=== PATIENT | female | born 1965 | race Caucasian/White ===

== ENCOUNTER 2017-08-26 09:24 | Outpatient (CLI) | END 2017-08-26 09:25 | disposition home or self-care (01) | LOC: RHC-LAB 09:24 | PROVIDERS: ATTEND Emergency Medicine | DX: E66.9 Obesity, unspecified (principal); F41.1 Generalized anxiety disorder; Z00.00 Encounter for general adult medical examination without abnormal findings | CPT/HCPCS: 36415; 80053; 80061; 84443; 85025 ==

== ENCOUNTER 2017-12-22 15:19 | Outpatient (CLI) | payer OTHER ==
--- NOTE | 2017-12-22 15:45 | DI ---
EXAM: Two views of the left hip. History: Left hip pain. Findings: No acute fracture or dislocation. Left hip joint space is preserved. Bilateral fallopian tube occlusion devices. Impression: No acute osseous abnormality
== END 2017-12-22 15:20 | disposition home or self-care (01) ==
LOC: RAD 15:19
PROVIDERS: ATTEND Emergency Medicine
DX: M25.552 Pain in left hip (principal); M70.72 Other bursitis of hip, left hip

== ENCOUNTER 2018-02-28 15:41 | Outpatient (CLI) | payer OTHER | END 2018-02-28 15:42 | disposition home or self-care (01) | LOC: RHC-LAB 15:41 | PROVIDERS: ATTEND Nurse Practitioner Family | DX: M25.50 Pain in unspecified joint (principal) | CPT/HCPCS: 36415; 85651; 86038; 86140; 86430 ==

== ENCOUNTER 2018-10-03 07:20 | Outpatient (CLI) | END 2018-10-03 07:21 | disposition home or self-care (01) | LOC: CAR 07:20 | PROVIDERS: ATTEND Nurse Practitioner Family | DX: E66.9 Obesity, unspecified (principal); Z00.00 Encounter for general adult medical examination without abnormal findings | CPT/HCPCS: 36415; 80053; 80061; 84443; 85025; 93005; 93010 ==

== ENCOUNTER 2018-10-03 08:09 | Outpatient (CLI) | END 2018-10-03 08:10 | disposition home or self-care (01) | LOC: RHC-LAB 08:09 | PROVIDERS: ATTEND Nurse Practitioner Family | DX: Z00.00 Encounter for general adult medical examination without abnormal findings (principal) | CPT/HCPCS: 36415; 80053; 80061; 84443; 85025 ==